=== PATIENT | male | born 1975 | race Caucasian/White ===

== ENCOUNTER 2023-09-06 06:04 | Day surgery (SDC) | payer MEDICAID ==
[2023-08-30 15:45] LABS: BASOPHILS % (AUTO) 0.5 % (0-1); EOSINOPHILS # (AUTO) 0.1 X10'3 (0-0.9); EOSINOPHILS % (AUTO) 0.8 % (0-6); HEMATOCRIT 45.2 % (42.0-52.0); HEMOGLOBIN 14.6 g/dl (14.0-17.9); LYMPHOCYTES # (AUTO) 1.9 X10'3 (1.1-4.8); LYMPHOCYTES % (AUTO) 20.7 % (21-51); MEAN CORPUSCULAR HEMOGLOBIN 30.2 PG (27.0-31.0); MEAN CORPUSCULAR HGB CONC 32.4 g/dL (33.0-36.5); MEAN CORPUSCULAR VOLUME 93.4 FL (78-98); MEAN PLATELET VOLUME 7.5 FL (7.4-10.4); MONOCYTES # (AUTO) 0.7 X10'3 (0-0.9); MONOCYTES % (AUTO) 7.7 % (2-12); NEUTROPHILS # (AUTO) 6.5 X10'3 (1.8-7.7); NEUTROPHILS % (AUTO) 70.3 % (42-75); PLATELET COUNT 280 X10'3 (140-440); RED BLOOD COUNT 4.83 X10'6 (4.70-6.10); RED CELL DISTRIBUTION WIDTH 15.2 % (11.5-14.5); WHITE BLOOD COUNT 9.2 X10'3 (4.5-11.0)
[2023-08-30 15:51] LABS: ALANINE AMINOTRANSFERASE 36 U/L (12-78); ALBUMIN 3.9 G/DL (3.4-5.0); ALKALINE PHOSPHATASE 90 IU/L (46-116); ANION GAP 7 (8-16); ASPARTATE AMINO TRANSFERASE 26 U/L (10-37); BILIRUBIN,TOTAL 0.3 MG/DL (0.1-1.0); BLOOD UREA NITROGEN 6 MG/DL (7-18); BUN/CREATININE RATIO 7.7 (10.0-20.0); CALCIUM 9.1 MG/DL (8.5-10.1); CHLORIDE 104 MMOL/L (99-107); CREATININE 0.78 MG/DL (0.60-1.10); GLUCOSE 104 MG/DL (70-104); SODIUM 139 MMOL/L (135-145); TOTAL CARBON DIOXIDE 28.5 MMOL/L (24-32); eGFR > 90 ML/MIN
[~2023-09-06] VITALS: Ht 182.9 cm; Wt 132.6 kg
[2023-09-06] VITALS (14 sets, daily range): BP systolic 113–179; BP diastolic 64–95; PULSE 71–98; RESP 10–18; TEMP 99.2; O2SAT 93–100
[~2023-09-06 06:04] MED LIST: AMLO-708 PO; METH-603 PO; TEST200V33 IM; albuterol 2.5 MG/3 ML nebule NEB ONE
[2023-09-06] MEDS ORDERED: BUDE10.22 (06:31)
[2023-09-06] MEDS ORDERED: ALBU18HF2 (06:31)
[2023-09-06] MEDS: Cefazolin 3 GM/100ML NS IVPB 100 ML IV ONE (06:57)
[2023-09-06] MEDS: ringers solution, lacted 1,000 ML IV SCH (06:57)
[2023-09-06] MEDS: famotidine 20mg tablet PO ONE (06:57)
[2023-09-06] MEDS ORDERED: proCHLORperazine 10 MG/2 ml inj IV PRN (07:50)
[2023-09-06] MEDS ORDERED: morphine 2 MG/ML inj. syringe IV PRN (07:50)
[2023-09-06] MEDS ORDERED: meperidine/PF 25mg/ml syringe IV PRN ×3 (07:50)
[2023-09-06] MEDS ORDERED: ringers solution, lacted 1,000 ML IV SCH (07:50)
[2023-09-06] MEDS ORDERED: ondansetron/PF 4mg/2ml inj IV PRN (07:50)
[2023-09-06] MEDS ORDERED: morphine 4 MG/ML inj SYRINge IV PRN (07:50)
[2023-09-06] MEDS ORDERED: sevoflurane 250ml liquid IH ONE (07:56)
[2023-09-06] MEDS ORDERED: fentaNYL/PF 50MCG/1 ML 2ML syringe ONE (08:01)
[2023-09-06] MEDS ORDERED: midazolam 1 mg/ML 2ml injection ONE (08:01)
[2023-09-06] MEDS: LIDOcaine 1% 30ml preserv. free vial ONE (08:19)
[2023-09-06] MEDS: BUPIVAcaine 2.5mg/ml inj 50ml vial (contains preservative) ONE (08:20)
[2023-09-06] MEDS ORDERED: neostigmine methylsulfate 1 MG/ML 10ml vial ONE (08:53)
[2023-09-06] MEDS ORDERED: rocuronium 10mg/ml inj IV ONE (08:53)
[2023-09-06] MEDS ORDERED: propofol inj 20 ML IV ONE (08:53)
[2023-09-06] MEDS ORDERED: ondansetron/PF 4mg/2ml inj ONE (08:54)
[2023-09-06] MEDS ORDERED: dexamethasone sod phosphate 4mg/ml inj. ONE (08:54)
[2023-09-06] MEDS ORDERED: acetaminophen 325mg tablet PO PRN (09:45)
[2023-09-06] MEDS: acetaminophen 1,000mg/100ml IV 100 ML IV ONE (10:12)
[2023-09-06] MEDS: oxyCODONE/APAP 5-325mg tablet PO ONE (10:32)
== END 2023-09-06 11:16 | disposition home or self-care (01) ==
LOC: PAS 06:04
PROVIDERS: ATTEND Surgery
DX: K40.90 Unilateral inguinal hernia, without obstruction or gangrene, not specified as recurrent (principal); I10 Essential (primary) hypertension; E66.9 Obesity, unspecified; J44.9 Chronic obstructive pulmonary disease, unspecified; F41.9 Anxiety disorder, unspecified; G43.909 Migraine, unspecified, not intractable, without status migrainosus; Z79.899 Other long term (current) drug therapy; Z68.39 Body mass index [BMI] 39.0-39.9, adult; Z88.8 Allergy status to other drugs, medicaments and biological substances
CPT/HCPCS: 36415; 49650; 80053; 82948; 85025; 93005; C1781; J0131; J0690; J1100; J2250; J2405; J2704; J2710; J3010; J3490; J7030; J7120; S2900; Z7506; Z7508; Z7512; A4215; A4618

== ENCOUNTER 2024-12-10 12:49 | Inpatient (IN) | payer MEDICAID ==
[~2024-12-10] VITALS: Ht 185.4 cm; Wt 129.6 kg
[~2024-12-10 12:49] MED LIST changes: +ALBU18HF2; +BUDE10.22; -albuterol 2.5 MG/3 ML nebule NEB ONE
--- NOTE | 2024-12-10 13:20 | ELECTROCARDIOGRAPH REPORT ---
[facility] Test Date: 2024-12-10 Test Time: 13:13:42 Pat Name: DISHA GRIGGS Department: EMERGENCY ROOM [id number] Room: Gender: M Network Associate: NORBERT : 1975 Requested By: TERI SATNLEY Order Number: [id number] Reading MD: Measurements Intervals Mobile Rate: 181 P: 0 LA: 0 QRS: 116 QRSD: 76 T: 15 QT: 271 QTc: 471 Interpretive Statements Atrial fibrillation with rapid V-rate Probable anterior infarct, old Minimal ST depression, inferior leads Baseline wander in lead(s) V2,V5,V6 Please click the below link to view image of tracing.
[2024-12-10 13:39] LABS: MEAN PLATELET VOLUME 7.8 FL (7.4-10.4); RED CELL DISTRIBUTION WIDTH 14.6 % (11.5-14.5)
--- NOTE | 2024-12-10 13:45 | RADIOLOGY REPORT ---
DI CHEST,SINGLE VIEW, HISTORY: CP COMPARISON: None None TECHNICAL DATA: 1 view of the chest was obtained. FINDINGS: Lines and tubes: None Cardiomediastinal silhouette: normal Pulmonary vasculature: normal Lung expansion: normal Lung airspace: Severe bilateral upper and mid lung zone peripheral consolidation. Lung interstitium: normal Pleura: normal Pneumothorax: no Bones: Unremarkable Other: no IMPRESSION: Severe bilateral upper and mid lung zone peripheral consolidation.
[2024-12-10] MEDS: diltiazem 5mg/ml 5ml inj. IV ONE ×2 (13:52→14:41)
[2024-12-10 13:59] LABS: CREATININE 1.12 MG/DL (0.60-1.10); PRO BRAIN NATRIURETIC PEPTIDE 559 PG/ML (0-125); TOTAL CARBON DIOXIDE 28.5 MMOL/L (24-32); eCRCL 88 ML/MIN; eGFR 69 ML/MIN
--- NOTE | 2024-12-10 14:09 | Physician Documentation ---
History of Present Illness General Chief Complaint: Shortness of Breath Stated Complaint: POSS PNEUMONIA Time Seen by MD: 13:42 Primary Medical Doctor: SARAHI Mode of Arrival: POV History of Present Illness Initial Comments The patient is a 49-year-old male history of COPD, obesity and hypertension who has felt his heart racing for the past four or five days. He presents with AF RVR. Medication Reconciliation Allergies: Coded Allergies: carisoprodol (Unverified Allergy, Unknown, 12/10/24) gabapentin (Verified Allergy, Unknown, PSYCHOSIS AND LOSS OF TIME, 12/10/24) Scheduled Amlodipine Besylate (Amlodipine Besylate), 1 TAB PO DAILY, (Reported) Budesonide/Formoterol Fumarate (Symbicort 80-4.5 Mcg Inhaler), 1 PUFF DAILY, (Reported) Methadone Hcl* (Dolophine*), 149 MG PO DAILY, (Reported) Testosterone Cypionate (TESTOSTERONE CYPIONATE 200mg/ml 10ml vial), 100 MG IM Q7D, (Reported) Scheduled PRN Albuterol Sulfate (Ventolin Hfa), 1 PUFF Q4H PRN for SOB or wheezing, (Reported) Review of Systems ROS Constitutional: Denies chills, fatigue, fever, weight gain or weight loss. HEENT: Denies hearing loss, sinus pressure or visual changes. Respiratory: Has been wheezing over the past 10 days, using his inhaler. Cardiovascular: Denies chest pain, pain while walking (claudication), edema or palpitations. Gastrointestinal: Denies abdominal pain, blood in stool, constipation, diarrhea, heartburn, loss of appetite, nausea or vomiting. Genitourinary: Denies painful urination (dysuria), excessive amount of urine (polyuria) or urinary frequency. Metabolic/Endocrine: Denies cold intolerance, heat intolerance, excessive thirst (polydipsia) or excessive hunger (polyphagia). Neurological: Denies dizziness, extremity numbness, extremity weakness, headaches, seizures or tremors. Psychiatric: Denies anxiety or depression. Integumentary: Denies breast discharge, breast lump, hives, mole change(s), rash or skin lesion. Musculoskeletal: Denies back pain, joint pain, joint swelling or neck pain. Hematologic: Denies easily bleeding, easily bruises, lymphedema or issues with blood clots. Immunologic: Denies food allergies or seasonal allergies. Physical Exam Physical Exam Vital Signs: Temperature: 98.4, Source: Oral, Heart Rate: 164, Respiratory Rate: 29, BP: 150/116, Pulse Oximetry: 98, Weight: 129.550 Oxygen Flow Rate: 0 Physical Exam Physical Exam Vitals and nursing note reviewed. Constitutional: General: Patient is awake, alert, oriented x 4 in no acute distress and well appearing. Speech is clear and lucid. Appearance: Normal appearance. Patient is not ill-appearing, toxic-appearing or diaphoretic. HENT: Head: Normocephalic and atraumatic. Mouth/Throat: Mouth: Mucous membranes are moist. Pharynx: Oropharynx is clear. Eyes: General: No scleral icterus. Extraocular Movements: Extraocular movements intact. Pupils: Pupils are equal, round, and reactive to light. Neck: Supple, no Kernig or Brudzinski sign. Cardiovascular: Rate and Rhythm: Tachycardia. Heart sounds: No murmur heard. Pulmonary: Effort: No respiratory distress. Breath sounds: No wheezing, rhonchi or rales. Abdominal: General: There is no distension. Palpations: There is no fluid wave, hepatomegaly or mass. Tenderness: There is no abdominal tenderness. There is no guarding. Musculoskeletal: General: No swelling or deformity. Skin: Coloration: Skin is not jaundiced. Findings: No erythema or rash. Neurological: Mental Status: Patient is alert. Progress Results/Orders Results/Orders Orders - DAVID CHICAS MD Hospitalist (12/10/24 17:45) Completed Orders - DAVID CHICAS MD [place] (12/10/24 13:43) Drug Screen, Urine (12/10/24 13:43) Pt Inr (12/10/24 13:43) Diltiazem Iv (Cardizem Iv 5mg/Ml Inj.) (12/10/24 13:50) Diltiazem Iv (Cardizem Iv 5mg/Ml Inj.) (12/10/24 14:05) Diltiazem-Ns 100mg/100ml (Cardizem-Ns 10 (12/10/24 14:15) Diltiazem-Ns 100mg/100ml (Cardizem-Ns 10 (12/10/24 15:51) Ua W/Microscopic, Cult If Ind (12/10/24 22:05) Vital Signs 12/10/24 12/10/24 12/10/24 12/10/24 13:13 13:37 13:37 13:37 Temp 97.6 98.4 Pulse 77 177 Resp 18 20 29 B/P (MAP) 148/78 150/116 (127) Pulse Ox 95 98 O2 Delivery Room Air* O2 Flow Rate 0 FiO2 N/A 12/10/24 12/10/24 12/10/24 12/10/24 13:52 14:17 14:41 14:43 Pulse 164 131 122 128 Resp 22 B/P (MAP) 150/116 161/112 (128) 124/71 143/100 Pulse Ox 98 O2 Flow Rate 0 12/10/24 12/10/24 12/10/24 12/10/24 15:12 15:17 15:54 16:12 Temp 98.4 Pulse 136 105 97 98 Resp 16 16 B/P (MAP) 167/114 167/114 (131) 150/83 113/77 (89) Pulse Ox 97 97 O2 Flow Rate 0 0 FiO2 N/A 12/10/24 12/10/24 12/10/24 12/10/24 16:45 16:48 18:00 18:20 Pulse 87 117 93 147 Resp 20 19 B/P (MAP) 140/84 (102) 140/84 166/94 (118) Pulse Ox 94 96 O2 Flow Rate 0 0 Laboratory Tests Test 12/10/24 13:22 12/10/24 15:29 12/10/24 16:54 White Blood Count 13.8 H Red Blood Count 5.20 Hemoglobin 15.7 Hematocrit 48.3 Mean Corpuscular Volume 92.9 Mean Corpuscular Hemoglobin 30.1 Mean Corpuscular Hemoglobin Concent 32.4 L Red Cell Distribution Width 14.6 H Platelet Count 390 Mean Platelet Volume 7.8 Neutrophils (%) (Auto) 81.2 H Lymphocytes (%) (Auto) 10.2 L Monocytes (%) (Auto) 7.2 Eosinophils (%) (Auto) 0.9 Basophils (%) (Auto) 0.5 Neutrophils # (Auto) 11.2 H Lymphocytes # (Auto) 1.4 Monocytes # (Auto) 1.0 H Eosinophils # (Auto) 0.1 Basophils # (Auto) 0.1 CBC Comment Prothrombin Time 12.3 H INR International Normalized Ratio 1.2 Coagulation Comments Sodium Level 135 Potassium Level 4.4 Chloride Level 99 Carbon Dioxide Level 28.5 Anion Gap 8 Blood Urea Nitrogen 15 Creatinine 1.12 H Estimated GFR/1.73 m2 69 BUN/Creatinine Ratio 13.4 Glucose Level 146 H Hemoglobin A1c 6.3 H Lactic Acid Level 1.0 Calcium Level 9.3 Magnesium Level 2.2 Troponin I High Sensitivity 32 30 31 Pro-B-Type Natriuretic Peptide 559 H Albumin 2.9 L Thyroid Stimulating Hormone (TSH) 1.79 Chemistry Comments Ethyl Alcohol Level < 10 Troponin I High Sens Percent Delta 6 3 Troponin I Hi Sens Absolute Change -2 1 Medical Decision Making Findings The patient takes low-dose aspirin but no other anticoagulants. He presented with AF RVR. EKG medically necessary in the evaluation of AF RVR and interpreted by me at the time of patient evaluation. Rhythm is AF RVR with a rate of 181, possible anterior infarct (old), ST-T changes. Impression: Abnormal EKG. I am treating this patient with diltiazem. This patient's [id number] score is 2. Departure Disposition: ADMITTED INPATIENT Admitted to Inpatient Unit: to hospitalist Impression: Primary Impression: Atrial fibrillation with rapid ventricular response Condition: Fair Referrals: NO PRIMARY CARE PROVIDER (PCP) Signature Scribe Signature: . Attestation: . DAVID CHICAS MD Dec 10, 2024 14:09
[2024-12-10 14:32] LABS: ETHANOL < 10 MG/DL (<10)
[2024-12-10 14:42] LABS: INR 1.2 INR
[2024-12-10] MEDS: diltiazem-NS 100mg/100ml 100 ML IV SCH ×3 (14:43→23:35)
[2024-12-10] MEDS ORDERED: diltiazem-D5W 125mg/125ml 125 ML IV SCH (15:50)
[2024-12-10] MEDS ORDERED: potassium Cl 20 mEq SR tablet PO PRN ×2 (18:20)
[2024-12-10] MEDS ORDERED: ipratropium/albuterol 3ml nebule NEB PRN (18:20)
[2024-12-10] MEDS ORDERED: mag hydrox/Alum hydrox/simeth 30ml oral suspension PO PRN (18:20)
[2024-12-10] MEDS: diltiazem-D5W 125mg/125ml 125 ML IV SCH (18:20)
[2024-12-10] MEDS ORDERED: magnesium sulf-water 4G/100mL 100 ML IV PRN (18:20)
[2024-12-10] MEDS ORDERED: ondansetron/PF 4mg/2ml inj IV PRN (18:20)
[2024-12-10] MEDS ORDERED: magnesium hydroxide 30ml (MOM) UD suspension PO PRN (18:20)
[2024-12-10] MEDS ORDERED: magnesium sulf-water 2g/50mL 50 ML IV PRN (18:20)
[2024-12-10] MEDS ORDERED: potassium Cl 40MEQ/1/2NS 520ml 520 ML IV PRN (18:20)
[2024-12-10] MEDS: PERFLUTREN PROTEIN-A MICROSPHR (Optison) 0.22 MG/ML 3ML VIAL IV ONE (18:28)
[2024-12-10] MEDS ORDERED: diltiazem-D5W 125mg/125ml 125 ML IV PRN (19:10)
--- NOTE | 2024-12-10 19:21 | HISTORY AND PHYSICAL ---
History & Physical Providers to CC ~ History of Present Illness Reason for Admit\Complaint: AFib RVR/ Multifocal PNA History of Present Illness This is a 49-year-old male who presents to the ED with a cough and shortness of breath x1 week. The patient was thought he was experiencing a COPD exacerbation and did endorse having a fever at home. The patient also has had intermittent sensation of his heart racing in his chest for approximately one-week as well. On arrival to the ED the patient presented with AFib RVR with a heart rate 177 is on a Cardizem drip this did improve and the patient's heart rate has been in the 80s to 110s however when I evaluated the patient he was standing up and states that he is claustrophobic in his heart rate was not anywhere from the 140s to 160s the patient was on 15 mg of Cardizem drip I am going to increase to 20 mg. I did ask the nurse to help assist the patient to sit down as he was entangled in multiple different wires. And the patient's heart rate did improve to the 120s now that the patient is sitting down. The patient also on chest x- ray has multifocal pneumonia in his started on IV Zosyn Allergies: Coded Allergies: carisoprodol (Unverified Allergy, Unknown, 12/10/24) gabapentin (Verified Allergy, Unknown, PSYCHOSIS AND LOSS OF TIME, 12/10/24) Home Medications Home Medications Active Reported Ventolin Hfa (Albuterol Sulfate) 90 Mcg Hfa.aer.ad 1 Puff Q4H PRN Symbicort 80-4.5 Mcg Inhaler (Budesonide/Formoterol Fumarate) 80 Mcg-4.5 Mcg/Actuation Hfa.aer.ad 1 Puff DAILY Dolophine* (Methadone HCl) 10 Mg Tablet 149 Mg PO DAILY Amlodipine Besylate 10 Mg Tablet 1 Tab PO DAILY TESTOSTERONE CYPIONATE 200mg/ml 10ml vial (Testosterone Cypionate) 200 Mg/Ml Vial 100 Mg IM Q7D Past Medical History Past Medical History TBI COPD Diabetes Chronic pain Past Surgical History Surgical History Comment Cervical spine fusion Lumbar spine fusion Dixon teeth extraction Family History Family History: FH: diabetes mellitus FATHER FH: myocardial infarction FATHER Past Social History Social History Comment Quit smoking cigarettes a few weeks ago, does not drink alcohol, smokes marijuana. Full code status ROS ROS Except for positives in the HPI the rest of the 14 point review systems is negative Exam Vitals: Vital Signs Date Time Temp Pulse Resp B/P (MAP) Pulse Ox O2 Delivery O2 Flow Rate FiO2 12/10/24 18:57 147 173/104 12/10/24 18:00 19 96 0 12/10/24 15:17 98.4 N/A 12/10/24 13:37 Room Air* General: Gen. No acute distress alert and oriented 4 Lungs clear to ascultation bilaterally, no wheezes rales or rhonchi appreciated Heart irregular rhythm no murmurs rubs or clicks noted Abdomen soft nontender bowel sounds are normoactive Lower extremities no clubbing cyanosis, nor edema appreciated bilaterally Diagnostic Data Last Recorded Lab Results: 12/10/24 1322 12/10/24 1322 Diagnostic Data: Laboratory Tests Test 12/10/24 13:22 Prothrombin Time 12.3 SECONDS (9.0-12.0) H INR International Normalized Ratio 1.2 INR Coagulation Comments Advance Care Planning Advanced Care plannin - 30 Minutes Problems: (1) New onset a-fib Additional Plan # acute atrial fibrillation with rapid ventricular response On a Cardizem drip Start apixaban 5 mg b.i.d. Add metoprolol tartrate Admitted to PCU on a bus driver/monitor # multifocal community-acquired bacterial pneumonia NOS IV Zosyn Sputum culture # [id number]-wwtvcsjck diabetes mellitus And a hyper and hypoglycemic protocol # kidney disease Eval for HERMILA versus CKD with daily CMP # chronic pain syndrome # history of cervical spine and lumbar spine fusion Awaiting med reconciliation the patient is on 145 mg of methadone which we will need to be confirmed with the Agies. #DVT prophylaxis SCDs Apixaban I spent a total of 17 minutes on reviewing various resuscitative measures/ ACP with the patient at the time of admission. The patient has decided on full code status Date of Service: Dec 10, 2024 Billing Provider: CARLOS QUISPE DO Common Visit Codes: 33639-XQFAAGZ INP/OBS CARE (HIGH) Secondary Visit Codes: 69047-MRKCRUTL CARE PLAN 30 MINUTES CARLOS QUISPE DO Dec 10, 2024 19:21
[2024-12-10 19:23] VITALS: PULSE 123; RESP 18; O2SAT 95
[2024-12-10] MEDS ORDERED: glucagon, human recombinant 1mg kit SUBCUT PRN (19:25)
[2024-12-10] MEDS ORDERED: DEXTROSE 15 GM of carb/4 tabs (each vial/BOTTLE has 4 tablets) PO PRN ×2 (19:25)
[2024-12-10] MEDS ORDERED: dextrose 50%-water 50ml dispensing syringe IV PRN ×2 (19:25)
[2024-12-10] MEDS: K and/or MAG REPLACEMENT MC SCH (19:39)
[2024-12-10] MEDS: docusate sod 100mg capsule PO SCH (19:39)
[2024-12-10] MEDS: budesonide 0.5mg/2ml UD nebule IH SCH (19:56)
[2024-12-10] MEDS ORDERED: enoxaparin 40mg/0.4ml syringe SQ SCH (20:00)
[2024-12-10] MEDS: INSULIN LISPRO 100 UNIT/ML INSULN.PEN MULTI-DOSE SQ SCH (21:00)
[2024-12-10] MEDS: diltiazem-NS 100mg/100ml 100 ML IV PRN (22:01)
[2024-12-10 22:32] LABS: LEUKOCYTE ESTERASE ,URINE NEGATIVE (Neg); NITRITES, URINE NEGATIVE (Neg); OCCULT BLOOD,URINE NEGATIVE (Neg)
[2024-12-10 22:40] LABS: UA COLLECTION TYPE VOIDED
[2024-12-10 22:43] LABS: MUCUS STRANDS MODERATE /LPF (Neg); SQUAMOUS EPITHELIAL CELL,UR FEW /LPF (FEW)
[2024-12-10 22:44] VITALS: BP 137/98; PULSE 106; RESP 18; TEMP 97.7; O2SAT 96
[2024-12-10 22:45] LABS: URINE AMPHETAMINE SCREEN NEGATIVE (Neg); URINE BARBITUATE SCREEN NEGATIVE (Neg); URINE BENZODIAZEPINES SCREEN POSITIVE (Neg); URINE CANNABINOID SCREEN POSITIVE (Neg); URINE COCAINE SCREEN POSITIVE (Neg); URINE METHADONE SCREEN POSITIVE (Neg); URINE OPIATE SCREEN NEGATIVE (Neg); URINE PHENCYCLIDINE SCREEN NEGATIVE (Neg)
[2024-12-10 22:50] VITALS: RESP 18; O2SAT 96
[2024-12-10 22:55] VITALS: BP 155/72; PULSE 122
[2024-12-11] MEDS: piperacillin/tazo 4.5gm/100ml 100 ML IV SCH (00:42)
--- NOTE | 2024-12-11 07:45 | DISCHARGE SUMMARY ---
Discharge Summary Providers to CC ~ Discharge Summary Admission Diagnosis: Afib RVR/ severe pneumonia Hospital Course DATE OF ADMISSION: 12/10/2024 DATE OF DISCHARGE: 12/11/2024 Discharge Diagnosis\\Comment: Acute atrial fibrillation rapid ventricular response, multifocal community- acquired bacterial pneumonia NOS, rub-[id number]-[id number] diabetes mellitus, kidney disease, chronic pain syndrome Operations\\Procedures: None Consultants: None Complications: Unknown the patient left AMA and likely will have complications leaving AMA Condition on DC: Unstable (The patient left AMA at 2:55 a.m.) Discharge Summary: I admitted Mr. Will with the following HPI:This is a 49-year-old male who presents to the ED with a cough and shortness of breath x1 week. The patient was thought he was experiencing a COPD exacerbation and did endorse having a fever at home. The patient also has had intermittent sensation of his heart racing in his chest for approximately one-week as well. On arrival to the ED the patient presented with AFib RVR with a heart rate 177 is on a Cardizem drip this did improve and the patient's heart rate has been in the 80s to 110s however when I evaluated the patient he was standing up and states that he is claustrophobic in his heart rate was not anywhere from the 140s to 160s the patient was on 15 mg of Cardizem drip I am going to increase to 20 mg. I did ask the nurse to help assist the patient to sit down as he was entangled in multiple different wires. And the patient's heart rate did improve to the 120s now that the patient is sitting down. The patient also on chest x-ray has multifocal pneumonia in his started on IV Zosyn. The patient was on a Cardizem drip in his heart rate was of the time of the admission dictation anywhere from the 100s to 120s the patient had informed his nurse Harvey he was leaving AMA and per sign-out from the banking consultant resident the patient "left AMA in spite of explaining risks of " and had reported to the resident that the patient has a doctor's appointment at 10:00 the following morning. The patient left AMA at 2:55 a.m. *Problems/Diagnosis: (1) New onset a-fib Total Time Spent on D/C: Up to 30 Minutes Date of Service: Dec 11, 2024 Billing Provider: CARLOS QUISPE DO Common Visit Codes: NOT BILLABLE (The patient left AMA at 2:55 a.m.) CARLOS QUISPE DO Dec 11, 2024 07:45
[2024-12-11] MEDS ORDERED: metoprolol succinate 25mg (24-HOUR) SR. Tablet PO SCH (08:00)
== END 2024-12-11 03:03 | disposition left against medical advice (07) | DRG 140 ==
LOC: ER 12:50 → ED HOLD 18:25 → PCU 3S 22:44
PROVIDERS: ADMIT Family Medicine; ATTEND Family Medicine
DX: J44.0 Chronic obstructive pulmonary disease with (acute) lower respiratory infection (principal); J15.9 Unspecified bacterial pneumonia; I48.91 Unspecified atrial fibrillation; G89.4 Chronic pain syndrome; I10 Essential (primary) hypertension; F40.240 Claustrophobia; Z53.21 Procedure and treatment not carried out due to patient leaving prior to being seen by health care provider; E11.9 Type 2 diabetes mellitus without complications; N28.9 Disorder of kidney and ureter, unspecified; Z88.8 Allergy status to other drugs, medicaments and biological substances; Z98.1 Arthrodesis status; Z83.3 Family history of diabetes mellitus
CPT/HCPCS: 36415; 71045; 80048; 80305; 80320; 81001; 82948; 83036; 83605; 83735; 83880; 84443; 84484; 85025; 85610; 93005; 94760; 96365; 96375; 99285; G0378; J1815; J2543; J3490; J7040